=== PATIENT | male | born 1975 | race Caucasian/White ===

== ENCOUNTER 2017-04-27 11:05 | Day surgery (SDC) | payer BC ==
[~2017-04-27] VITALS: Ht 172.7 cm; Wt 93.0 kg
[2017-04-27 11:54] LABS: BASOPHILS # (AUTO) 0.3 K/uL (0.00-0.22); BASOPHILS % (AUTO) 3.8 % (0.0-2.0); EOSINOPHILS # (AUTO) 0.1 K/uL (0-0.4); EOSINOPHILS % (AUTO) 1.6 % (0.0-4.0); HEMATOCRIT 47.4 % (36-52); HEMOGLOBIN 15.7 g/dL (12.0-18.0); LYMPHOCYTES # (AUTO) 2.4 K/uL (2.0-11.5); LYMPHOCYTES % (AUTO) 27.3 % (20.5-51.1); MEAN CORPUSCULAR HEMOGLOBIN 30 pg (27-31); MEAN CORPUSCULAR HGB CONC 33 g/dL (33-37); MEAN CORPUSCULAR VOLUME 90 fL (80-94); MONOCYTES # (AUTO) 0.4 K/uL (0.8-1.0); MONOCYTES % (AUTO) 4.8 % (1.7-9.3); NEUTROPHILS # (AUTO) 5.4 K/uL (1.8-7.7); NEUTROPHILS % (AUTO) 62.5 % (42.2-75.2); PLATELET COUNT (AUTO) 296 K/uL (140-450); RED BLOOD CELL COUNT(AUTO) 5.27 MIL/uL (4.20-6.10); RED CELL DISTRIBUTION WIDTH 12.5 % (11.6-13.7); WHITE BLOOD COUNT (AUTO) 8.6 K/uL (4.8-10.8)
[2017-04-27 12:02] LABS: ANION GAP 12.6 (8-16); CALCIUM 8.2 mg/dL (8.5-10.1); CARBON DIOXIDE 29.2 mmol/L (21-32); POTASSIUM 3.8 mmol/L (3.5-5.1)
[2017-04-27 12:08] LABS: ALBUMIN 4.2 g/dL (3.4-5.0); TOTAL BILIRUBIN 0.6 mg/dL (0.0-1.0); TOTAL PROTEIN, SERUM 7.8 g/dL (6.4-8.2)
[2017-04-27] MEDS ORDERED: MIDAZOLAM 2 MG/2 ML VIAL ONE (12:28)
[2017-04-27] MEDS ORDERED: MEPERIDINE 50 MG/ML SYR ONE (12:29)
[2017-04-27] MEDS ORDERED: fentaNYL 0.05 MG/ML VIAL ONE (12:29)
[2017-04-27] MEDS ORDERED: LIDOCAINE/EPI MPF 1%1:200000 30 ML VIAL INJ ONE (12:39)
[2017-04-27] MEDS ORDERED: PROPOFOL 200 MG/20 ML VIAL IV ONE (12:50)
[2017-04-27] MEDS ORDERED: ONDANSETRON 4 MG/2 ML VIAL ONE (12:50)
[2017-04-27] MEDS ORDERED: SEVOFLURANE 250 ML BTL INH ONE (12:50)
[2017-04-27] MEDS ORDERED: DEXAMETHASONE 4 MG/ML VIAL ONE (12:50)
[2017-04-27] MEDS ORDERED: LACTATED RINGERS 1,000 ML IV SCH (13:27)
[2017-04-27] MEDS ORDERED: ONDANSETRON 4 MG/2 ML VIAL IVP PRN (13:30)
[2017-04-27] MEDS ORDERED: MEPERIDINE 25 MG/ML SYR IVP PRN (13:30)
[2017-04-27] MEDS ORDERED: HYDROmorphone 1 MG/ML AMP IVP PRN (13:30)
[2017-04-27] MEDS ORDERED: diphenhydrAMINE 50 MG/ML VIAL IVP PRN (13:30)
== END 2017-04-27 16:05 | disposition home or self-care (01) ==
LOC: MMU 11:05 → MDS 11:05 → MTU 13:19 → MDS 16:05
PROVIDERS: ATTEND Surgery
DX: L90.5 Scar conditions and fibrosis of skin (principal)
CPT/HCPCS: 11442; 12051; 36415; 71010; 80053; 85025; 87081; 93005; J0690; J1100; J2001; J2175; J2250; J2405; J2704; J3010; J7060; J7120; Q0092; 88304